=== PATIENT | male | born 1970 | race Caucasian/White ===

== ENCOUNTER 2025-04-28 13:29 | Emergency (ER) | payer SELFPAY ==
[~2025-04-28] VITALS: Ht 175.3 cm; Wt 105.2 kg
[2025-04-28] MEDS ORDERED: MUPI22OI2 TP (13:58)
--- NOTE | 2025-04-28 13:59 | ERN ---
General Chief Complaint: Other Problems Stated Complaint: FISH HOOT TO RT FOREARM Time Seen by MD: 13:31 Time Seen by Midlevel: 13:31 Source: patient History of Present Illness Initial Comments Patient comes in for a fishhook removal to his right forearm. No other injury noted Allergies: Coded Allergies: bee venom protein (honey bee) (Unverified Allergy, Unknown, HIVES, 04/28/25) Past Medical History Past Medical History: No Pertinent History Past Surgical History: Appendectomy ROS Dictation CONSTITUTIONAL: Negative except for HPI HEAD/FACE: Negative except for HPI EENT: Negative except for HPI RESPIRATORY: Negative except for HPI GASTROINTESTINAL/ABDOMINAL: Negative except for HPI GENITOURINARY: Negative except for HPI MUSCULOSKELETAL: Negative except for HPI INTEGUMENTARY: Negative except for HPI NEUROLOGICAL/PSYCH: Negative except for HPI HEMATOLOGIC/LYMPHATIC: Negative except for HPI All Systems Negative, Except as noted above. 13 point review of systems assessed and all negative except for above. Physical Exam Physical Exam Dictation PHYSICAL EXAM: GENERAL: alert,, awake oriented x 3 HEENT: EOMI, Sclera non icteric, moist mucosa NECK: Supple, no JVD, trachea midline LUNGS: Clear breath sounds bilaterally. No wheezes HEART: Regular rate and rhythm. Normal S1 and S2, without murmurs ABD: Abdomen soft, nontender. Bowel sounds present EXT: Fish hook to right forearm NEURO: Alert and oriented to person, follows commands MDM MDM: Differential diagnosis: Gackle removal, cellulitis, There are no social concerns with this patient. Prescription drug management Prescriptions will include: Mupirocin ointment Medical management and examination interpretation discussions were had by il wi th other qualified healthcare professionals as indicated for the patient's care. ED Course Vital Signs Date Time Temp Pulse Resp B/P (MAP) Pulse Ox O2 Delivery O2 Flow Rate FiO2 04/28/25 13:33 98.2 80 18 140/70 99 0 Procedure Dictation There was a patient hooked to the right forearm. Area was cleansed with wound cleanser. 2 cc of lidocaine was applied in the patient was advanced and removed successfully with no complication. DX & DISP Disposition: Discharge Departure Impression: Primary Impression: Fish hook in forearm Condition: Stable Scripts Mupirocin (Mupirocin Ointment) 2 % Oint 1 APPL TP TID for 7 Days, #22 GM 0 Refills apply to affected area(s) Prov: GIOVANNI LOVE 04/28/25 Time of Disposition: 13:55 I have reviewed the case, and I agree with, Diagnosis and Plan I performed the substantive portion of the visit. I have reviewed and personally made and approve the management plan that is documented in the note by myself or the MAURISIO. I acknowledge for responsibility for the patient's management plan. GIOVANNI LOVE PAC Apr 28, 2025 13:59
[2025-04-28 15:34] VITALS: BP 142/68; PULSE 76; RESP 16; TEMP 98.8; O2SAT 98
== END 2025-04-28 15:40 | disposition home or self-care (01) ==
LOC: EDH 13:29
DX: S50.851A Superficial foreign body of right forearm, initial encounter (principal); Z90.49 Acquired absence of other specified parts of digestive tract; Z91.030 Bee allergy status; W45.3XXA Fishing hook entering through skin, initial encounter; Y93.89 Activity, other specified; Y92.89 Other specified places as the place of occurrence of the external cause; Y99.8 Other external cause status
CPT/HCPCS: 90471; 90714; 99284